=== PATIENT | female | born 1950 | race Caucasian/White ===

== ENCOUNTER 2016-12-05 11:54 | Inpatient (IN) | payer MEDICARE, OTHER ==
[2016-12-05] VITALS (8 sets, daily range): BP systolic 110–155; BP diastolic 57–68; PULSE 81–106; RESP 18–19; TEMP 97.6–98.2; O2SAT 95–100
[~2016-12-05] VITALS: Ht 162.6 cm; Wt 66.3 kg
[~2016-12-05 11:54] MED LIST: LEVO.15
[2016-12-05] MEDS ORDERED: SODIUM CHLOR 0.9% 1000 ML INJ 1,000 ML IV SCH (12:06)
[2016-12-05] MEDS ORDERED: SODIUM CHLORIDE 0.9% FLUSH 5 ML FLUSH IVF PRN (12:15)
[2016-12-05] MEDS ORDERED: ONDANSETRON HCL 4 MG/2 ML VIAL IV PUSH ONE (12:15)
[2016-12-05] MEDS ORDERED: MORPHINE SULFATE 4 MG/ML INJ IV PUSH ONE (12:15)
--- NOTE | 2016-12-05 12:30 | RADRPT ---
EXAM DATE/TIME: 12/05/2016 12:17 [facility] COMPARISON: No previous studies available for comparison. INDICATIONS : Syncope, Seizure, Short of Breath, Chest Discomfort. MEDICAL HISTORY : Asthma. SURGICAL HISTORY : None. ENCOUNTER: Initial ACUITY: 1 day PAIN SCORE: 3/10 LOCATION: Bilateral chest FINDINGS: A single view of the chest demonstrates the lungs to be symmetrically aerated without evidence of mas s, infiltrate or effusion. The cardiomediastinal contours are unremarkable. Osseous structures are intact. CONCLUSION: No acute disease. aPul Rizo MD on December 05, 2016 at 12:28 Board Certified Radiologist. This report was verified electronically.
[2016-12-05] MEDS ORDERED: MULT-120 PO (12:31)
[2016-12-05] MEDS ORDERED: THYROID MED PO (12:31)
[2016-12-05] MEDS ORDERED: VITA100021 SL (12:32)
[2016-12-05 12:47] LABS: AUTOMATED NEUTROPHIL # 11.8 TH/MM3 (1.8-7.7); BASOPHIL # 0.1 TH/MM3 (0-0.2); BASOPHIL % 0.4 % (0.0-2.0); EOSINOPHIL % 0.2 % (0.0-4.0); HEMATOCRIT 36.5 % (35.0-46.0); HEMO FLAGS DIFF FINAL; LYMPH % 20.5 % (9.0-44.0); LYMPHOCYTE # 3.4 TH/MM3 (1.0-4.8); MEAN CELL VOLUME 88.7 FL (80.0-100.0); MEAN CORPUSCULAR HEMOGLOBIN 28.7 PG (27.0-34.0); MEAN CORPUSCULAR HGB CONC 32.4 % (32.0-36.0); MONO % 8.3 % (0.0-8.0); NEUT % 70.6 % (16.0-70.0); PLATELET COUNT 507 TH/MM3 (150-450); RED BLOOD COUNT 4.12 MIL/MM3 (4.00-5.30); WHITE BLOOD COUNT 16.7 TH/MM3 (4.0-11.0)
[2016-12-05 12:57] LABS: AMPHETAMINE, URINE NEG (NEG); BARBITURATES, URINE NEG (NEG); COCAINE, URINE NEG (NEG)
[2016-12-05 13:01] LABS: BACTERIA, URINE MANY /hpf; BLOOD, URINE NEG (NEG); GLUCOSE,URINE NEG (NEG); GRANULAR CAST, URINE 2 /lpf; HYALINE CAST, URINE 23 /lpf (RARE); KETONE, URINE 10 mg/dL (NEG); MUCUS URINE FEW /lpf (OCC); PH, URINE 5.5 (5.0-8.5); URINE COLOR YELLOW (YELLW/STRAW)
[2016-12-05 13:02] LABS: COMMENT (UR) CATH-CULTURE IND; CULTURE IF INDICATED CATH CULTURE IND; NITRITE,URINE POS (NEG)
[2016-12-05 13:04] LABS: ALT (GPT) 28 U/L (10-53); ANION GAP 14 MEQ/L (5-15); AST (GOT) 17 U/L (15-37); BICARBONATE 21.2 MEQ/L (21.0-32.0); BLOOD UREA NITROGEN 7 MG/DL (7-18); CHLORIDE 108 MEQ/L (98-107); GLOMERULAR FILTRATION RATE 88 ML/MIN (>89); POTASSIUM 3.1 MEQ/L (3.5-5.1); SODIUM (NA) 143 MEQ/L (136-145)
[2016-12-05 13:13] LABS: ALKALINE PHOSPHATASE 64 U/L (45-117); TOTAL BILIRUBIN ADULT 0.3 MG/DL (0.2-1.0)
[2016-12-05 13:15] LABS: CREATINE KINASE 51 U/L (26-192)
[2016-12-05] MEDS ORDERED: METHIMAZOLE 10 MG TAB PO ONE (13:30)
[2016-12-05] MEDS ORDERED: HYDROCORTISONE SOD SUCCINATE 100 MG VIAL IV PUSH ONE (13:30)
[2016-12-05] MEDS ORDERED: PROPRANOLOL HCL 80 MG TAB PO ONE (13:30)
[2016-12-05] MEDS ORDERED: IODINE (STRONG-LUGOLS) SOLN 20 DROP/1 ML BTL PO ONE (13:30)
[2016-12-05] MEDS ORDERED: POTASSIUM CHLORIDE 25 MEQ EFFERVESCENT TAB PO ONE (13:30)
[2016-12-05 14:04] LABS: INTERNATIONAL NORMALIZED RATIO 1.1 RATIO; PROTHROMBIN TIME - PATIENT 12.6 SEC (9.8-11.6)
[2016-12-05 14:06] LABS: FREE T3 6.83 PG/ML (2.18-3.98); FREE T4 2.65 NG/DL (0.76-1.46)
[2016-12-05] MEDS ORDERED: LORazepam 2 MG/ML VIAL IV PRN (14:15)
[2016-12-05] MEDS ORDERED: CHLORHEXIDINE GLUCONATE 2 % 1 PACK (2 CLOTHS) TOP PRN (14:15)
[2016-12-05] MEDS ORDERED: RESP: ALBUTEROL 2.5 MG/IPRATROPIUM 0.5 MG NEB (PRN) INH (14:15)
[2016-12-05] MEDS ORDERED: MISCELLANEOUS NURSING INFORMATION XX SCH (14:15)
[2016-12-05] MEDS ORDERED: ACETAMINOPHEN 325 MG TAB PO PRN (14:15)
[2016-12-05] MEDS ORDERED: SODIUM CHLORIDE 0.9% FLUSH 5 ML FLUSH IV FLUSH PRN (14:15)
[2016-12-05] MEDS ORDERED: METOCLOPRAMIDE HCL 10 MG/2 ML VIAL IV PRN (14:15)
--- NOTE | 2016-12-05 14:15 | HHI.HP ---
HPI Service Critical Care Medicine Primary Care Physician No Primary Care Physician Admission Diagnosis thyroid storm, altered mental status Diagnosis: Travel History International Travel<30 Days: No Contact w/Intl Traveler <30 Da: No Traveled to Known Affected Are: No History of Present Illness 66-year-old male was brought to the emergency room by EMS from an urgent care center after having a possible seizure episode. Patient went to the urgent care for right earache a couple. While she was being exam and she started posturing that lasted for about 30 seconds and then flailing her extremities. In the process she fell from the exam table. By the time 911 arrived patient had a GCS of 11 as per them and patient was combative with the flailing extremities. Her heart rate was in the 180s and they gave her a dental collared followed by Braydon and slowly the heart rate came down to 120s. During this time patient' s mental status improved to GCS of 14. She was less combative but slightly confused. She was urinary incontinent but no lip or tongue bite. She was complaining off mid back pain upon arrival and being moved from the stretcher. Patient continue to be a GCS of 14 and tachycardic upon arrival. She denied of any history of seizures. Patient does not have a primary care doctor and has not seen anybody in past 2 years. She is not on any medications on a regular basis she said. She denied any substance abuse. She is not an alcoholic. Besides the mid back pain she is not complaining of any other pain. Review of Systems Constitutional: DENIES: Diaphoretic episodes, Fatigue, Fever, Weight gain, Weight loss, Chills, Dizziness, Change in appetite, Night Sweats Endocrine: DENIES: Abnorml menstrual pattern, Heat/cold intolerance, Polydipsia , Polyuria, Polyphagia Eyes: DENIES: Blurred vision, Diplopia, Eye inflammation, Eye pain, Vision loss , Photosensitivity, Double Vision Ears, nose, mouth, throat: COMPLAINS OF: Ear Pain, DENIES: Tinnitus, Hearing loss, Vertigo, Nasal discharge, Oral lesions, Throat pain, Hoarseness, Running Nose, Epistaxis, Sinus Pain, Toothache, Odynophagia Respiratory: DENIES: Apneas, Cough, Snoring, Wheezing, Hemoptysis, Sputum production, Shortness of breath Cardiovascular: DENIES: Chest pain, Palpitations, Syncope, Dyspnea on Exertion , PND, Lower Extremity Edema, Orthopnea, Claudication Gastrointestinal: DENIES: Abdominal pain, Black stools, Bloody stools, Constipation, Diarrhea, Nausea, Vomiting, Difficulty Swallowing, Anorexia Genitourinary: DENIES: Abnormal vaginal bleeding, Dysmenorrhea, Dyspareunia, Sexual dysfunction, Urinary frequency, Urinary incontinence, Urgency, Hematuria , Dysuria, Nocturia, Vaginal discharge Musculoskeletal: DENIES: Joint pain, Muscle aches, Stiffness, Joint Swelling, Back pain, Neck pain Integumentary: DENIES: Abnormal pigmentation, Pruritus, Rash, Nail changes, Breast masses, Breast skin changes, Nipple discharge Hematologic/lymphatic: DENIES: Bruising, Lymphadenopathy Immunologic/allergic: DENIES: Eczema, Urticaria Neurologic: DENIES: Abnormal gait, Headache, Localized weakness, Paresthesias, Seizures, Speech Problems, Tremor, Poor Balance Psychiatric: DENIES: Anxiety, Confusion, Mood changes, Depression, Hallucinations, Agitation, Suicidal Ideation, Homicidal Ideation, Delusions Past Family Social History Allergies: Coded Allergies: Albuterol (Verified Allergy, Severe, 12/05/16) Past Medical History Tj thyroiditis 30 years ago Past Surgical History Non- Reported Medications Reported Meds & Active Scripts Active Reported Vitamin B-12 (Cyanocobalamin) 1,000 Mcg Subl 1,000 Mcg SL DAILY [Thyroid Med] 1 Tab PO QD Multivitamin Women (Multiple Vitamins W/ Minerals) 1 Tab Tab 1 Tab PO DAILY Active Ordered Medications Current Medications Medications (Trade) Dose Ordered Sig/Peterson Route PRN Reason Start Time Stop Time Status Last Admin Dose Admin IV Flush (NS Flush) 2 ml UNSCH PRN IVF FLUSH AFTER USING IV ACCESS 12/05/16 12:15 IV Flush (NS Flush) 2 ml UNSCH PRN IV FLUSH FLUSH AFTER USING IV ACCESS 12/05/16 14:15 IV Flush (NS Flush) 2 ml BID IV FLUSH 12/05/16 21:00 Acetaminophen (Tylenol) 650 mg Q6H PRN PO PAIN 1-10 AND/OR FEVER >101F 12/05/16 14:15 Morphine Sulfate (Morphine Inj) 2 mg Q2H PRN IV PAIN SCALE 6 TO 10 12/05/16 14:15 Famotidine (Pepcid) 20 mg Q12HR PO 12/05/16 21:00 Lorazepam (Ativan Inj) 1 mg Q1H PRN IV Agitation/Sedation 12/05/16 14:15 Ondansetron HCl (Zofran Inj) 4 mg Q6H PRN IV NAUSEA OR VOMITING 12/05/16 14:15 Metoclopramide HCl (Reglan Inj) 10 mg Q6H PRN IV NAUSEA OR VOMITING 12/05/16 14:15 Docusate Sodium (Colace) 100 mg BID PO 12/05/16 21:00 Zolpidem Tartrate (Ambien) 5 mg HS PRN PO INSOMNIA 12/05/16 14:15 Miscellaneous Information 1 [id number] XX 12/05/16 14:15 Chlorhexidine Gluconate (Chlorhexidine 2% Cloth) 3 pack Taper DAILY@04 TOP 12/06/16 04:00 12/02/17 03:59 Chlorhexidine Gluconate (Chlorhexidine 2% Cloth) 3 pack UNSCH PRN TOP HYGIENIC CARE 12/05/16 14:15 Propranolol HCl (Inderal) 40 mg Q8HR PO 12/05/16 22:00 Methimazole (Tapazole) 5 mg DAILY PO 12/06/16 09:00 Cholestyramine Resin (Questran 4 Gm Pkt) 4 gm Q8HR PO 12/05/16 22:00 Hydrocortisone Sodium Succinate (SoluCORTEF INJ) 100 mg Q12HR IV PUSH 12/05/16 21:00 Social History Used to drink stopped 30 years ago Used to smoke stopped 25 years ago No illicit drug abuse Physical Exam Vital Signs Vital Signs Date Time Temp Pulse Resp B/P Pulse Ox O2 Delivery O2 Flow Rate FiO2 12/05/16 12:27 97.6 98 18 132/68 96 Nasal Cannula 3 12/05/16 12:26 96 Nasal Cannula 3 12/05/16 12:01 111 16 97 Nasal Cannula 2 Physical Exam GENERAL: Well-nourished, well-developed patient. SKIN: Warm and dry. HEAD: Normocephalic. EYES: No scleral icterus. No injection or drainage. NECK: Supple, trachea midline. No JVD or lymphadenopathy. CARDIOVASCULAR: Regular rate and rhythm without murmurs, gallops, or rubs. RESPIRATORY: Breath sounds equal bilaterally. No accessory muscle use. GASTROINTESTINAL: Abdomen soft, non-tender, nondistended. MUSCULOSKELETAL: No cyanosis, or edema. BACK: Nontender without obvious deformity. No CVA tenderness. Laboratory Laboratory Tests Test 12/05/16 12/05/16 12:10 13:20 White Blood Count 16.7 Red Blood Count 4.12 Hemoglobin 11.8 Hematocrit 36.5 Mean Corpuscular Volume 88.7 Mean Corpuscular Hemoglobin 28.7 Mean Corpuscular Hemoglobin 32.4 Concent Red Cell Distribution Width 14.0 Platelet Count 507 Mean Platelet Volume 7.8 Neutrophils (%) (Auto) 70.6 Lymphocytes (%) (Auto) 20.5 Monocytes (%) (Auto) 8.3 Eosinophils (%) (Auto) 0.2 Basophils (%) (Auto) 0.4 Neutrophils # (Auto) 11.8 Lymphocytes # (Auto) 3.4 Monocytes # (Auto) 1.4 Eosinophils # (Auto) 0.0 Basophils # (Auto) 0.1 CBC Comment DIFF FINAL Differential Comment Urine Color YELLOW Urine Turbidity HAZY Urine pH 5.5 Urine Specific [place] 1.017 Urine Protein 30 Urine Glucose (UA) NEG Urine Ketones 10 Urine Occult Blood NEG Urine Nitrite POS Urine Bilirubin NEG Urine Urobilinogen LESS THAN 2.0 Urine Leukocyte Esterase LARGE Urine RBC 6 Urine WBC 45 Urine WBC Clumps FEW Urine Bacteria MANY Urine Hyaline Casts 23 Urine Granular Casts 2 Urine Mucus FEW Microscopic Urinalysis Comment CATH-CULTURE IND Sodium Level 143 Potassium Level 3.1 Chloride Level 108 Carbon Dioxide Level 21.2 Anion Gap 14 Blood Urea Nitrogen 7 Creatinine 0.67 Estimat Glomerular Filtration 88 Rate Random Glucose 163 Calcium Level 8.4 Total Bilirubin 0.3 Aspartate Amino Transf 17 (AST/SGOT) Alanine Aminotransferase 28 (ALT/SGPT) Alkaline Phosphatase 64 Total Creatine Kinase 51 Troponin I LESS THAN 0.02 Total Protein 6.1 Albumin 2.7 Free Thyroxine 2.65 Free Triiodothyronine (T3) 6.83 pg/dL Thyroid Stimulating Hormone 0.017 3rd Gen Urine Opiates Screen NEG Urine Barbiturates Screen NEG Urine Amphetamines Screen NEG Urine Benzodiazepines Screen NEG Urine Cocaine Screen NEG Urine Cannabinoids Screen NEG Ethyl Alcohol Level LESS THAN 3 Prothrombin Time 12.6 Prothromb Time International 1.1 Ratio Date/Time Procedure Status Source Growth 12/05/16 12:10 Urine Culture Received Urine Catheterized Urine Pending Result Diagram: 12/05/16 1210 12/05/16 1210 Imaging Last [address] 12/05/16 1206 Signed Impressions: Service Date/Time: Monday, December 05, 2016 14:07 - CONCLUSION: Normal examination for a patient of this age. Paul Rizo MD Chest X-Ray 12/05/16 1206 Signed Impressions: Service Date/Time: Monday, December 05, 2016 12:17 - CONCLUSION: No acute disease. Paul Rizo MD Thoracic Spine CT 12/05/16 0000 Signed Impressions: Service Date/Time: Monday, December 05, 2016 14:17 - CONCLUSION: 1. Small superior endplate compression fracture of T7 without subluxation. 2. No canal stenosis. Bones are osteopenic. Colin Bonilla MD CT Angiography 12/05/16 0000 Signed Impressions: Service Date/Time: Monday, December 05, 2016 14:17 - CONCLUSION: 1. No evidence of PE. 2. There is atelectasis in the renal segment of the left lung and right lung base. 3. Hepatic cysts. Paul Rizo MD Assessment and Plan Assessment and Plan Thyroid storm - Propranolol - Hydrocortisone - Methimazole - Xanax when necessary Otitis media - Amoxicillin DVT GI prophylaxis -Early aggressive mobilization and Pepcid Critical Care: The total critical care time was 35 minutes. Time to perform other separately billable procedures was not included in the critical care time. Hero Puente MD Dec 05, 2016 14:15
--- NOTE | 2016-12-05 14:23 | PD ---
HPI Chief Complaint: Seizure Time Seen by Provider: 12:04 Travel History International Travel<30 days: No Contact w/Intl Traveler<30days: No Traveled to known affect area: No History of Present Illness HPI 66-year-old male was brought to the emergency room by EMS from an urgent care center after having a possible seizure episode. Patient went to the urgent care for right earache. While she was being examined she started posturing that lasted for less than 30 seconds and then she started flailing her extremities. In the process she fell from the exam table. By the time 911 arrived patient had a GCS of 11 as per them and patient was combative with the flailing extremities. Her heart rate was in the 180s and they gave her Adenocard followed by Cardizem and slowly the heart rate came down to 120s. During this time patient's mental status improved as well to GCS of 14. She was less combative but slightly confused. She had urinary incontinent but no lip or tongue bite. She was complaining off mid back pain upon arrival and being moved from the stretcher. Patient continue to be a GCS of 14 and tachycardic upon arrival. She denied of any history of seizures. Patient does not have a primary care doctor and has not seen anybody in past 2 years. She is not on any medications on a regular basis she said. She denied any substance abuse. She is not an alcoholic. Besides the mid back pain she is not complaining of any other pain. Patient's behavior was bizarre. [facility] Past Medical History Narrative Medical List of her past medical history as reviewed from the nursing note. Asthma: Yes Autoimmune Disease: No Blood Disorders: No Heart Rhythm Problems: No Cancer: No Cardiac Catheterization: No Cardiovascular Problems: Yes High Cholesterol: No Congestive Heart Failure: No Diabetes: No Endocrine: Yes Gastrointestinal Disorders: No Genitourinary: No Hypertension: No Musculoskeletal: No Neurologic: No Psychiatric: No Respiratory: No Myocardial Infarction: No Thyroid Disease: Yes Tetanus Vaccination: > 5 Years Influenza Vaccination: No Menopausal: Yes Past Surgical History Cholecystectomy: Yes (ERCP 2004) Coronary Artery Bypass Graft: No Gynecologic Surgery: Yes (D AND C) Social History Alcohol Use: No Tobacco Use: No Substance Use: No Allergies-Medications (Allergen,Severity, Reaction): Coded Allergies: Albuterol (Verified Allergy, Severe, 2/12/17) Comments List of her allergies reviewed from the nursing note. Reported Meds & Prescriptions Reported Meds & Active Scripts Active Reported Vitamin B-12 (Cyanocobalamin) 1,000 Mcg Subl 1,000 Mcg SL DAILY [Thyroid Med] 1 Tab PO QD Multivitamin Women (Multiple Vitamins W/ Minerals) 1 Tab Tab 1 Tab PO DAILY Narrative Medication List of her home medications reviewed from the nursing note. Review of Systems Except as stated in HPI: all other systems reviewed are Neg Physical Exam Narrative GENERAL: Awake, slightly confused, moderate distress SKIN: Warm and dry. HEAD: Atraumatic. Normocephalic. EYES: Pupils equal and round. No scleral icterus. No injection or drainage. ENT: No nasal bleeding or discharge. Mucous membranes pink and moist. Right TM has a small erythematous dot on the umbo. Light reflex preserved NECK: Trachea midline. No JVD. CARDIOVASCULAR: Regular rate and rhythm. No murmur appreciated. RESPIRATORY: No accessory muscle use. Clear to auscultation. Breath sounds equal bilaterally. GASTROINTESTINAL: Abdomen soft, non-tender, nondistended. Hepatic and splenic margins not palpable. MUSCULOSKELETAL: No obvious deformities. No clubbing. No cyanosis. No edema. NEUROLOGICAL: Awake but confused. GCS of 14. No obvious cranial nerve deficits. Motor grossly within normal limits. Normal speech. PSYCHIATRIC: Appropriate mood and affect; insight and judgment normal. Data Data Last Documented VS Vital Signs Date Time Temp Pulse Resp B/P Pulse Ox O2 Delivery O2 Flow Rate FiO2 12/05/16 12:27 97.6 98 18 132/68 96 Nasal Cannula 3 Orders Electrocardiogram (12/05/16 12:06) Complete Blood Count With Diff (12/05/16 12:06) Comprehensive Metabolic Panel (12/05/16 12:06) Creatine Kinase (Cpk) (12/05/16 12:06) Prothrombin Time / Inr (Pt) (12/05/16 12:06) Troponin I (12/05/16 12:06) Thyroid Stimulating Hormone (12/05/16 12:06) Urinalysis - C+S If Indicated (12/05/16 12:06) Chest, Single Ap (12/05/16 12:06) Ct Brain W/O Iv Contrast(Rout) (12/05/16 12:06) Blood Glucose (12/05/16 12:06) Ecg Monitoring (12/05/16 12:06) Iv Access Insert/Monitor (12/05/16 12:06) Oximetry (12/05/16 12:06) Sodium Chloride 0.9% Flush (Ns Flush) (12/05/16 12:15) Sodium Chlor 0.9% 1000 Ml Inj (Ns 1000 M (12/05/16 12:06) Drug Screen, Random Urine (12/05/16 12:06) Alcohol (Ethanol) (12/05/16 12:06) Ct Pulmonary Angiogram (12/05/16 ) Ct Thor Spine W/O Contrast (12/05/16 ) Morphine Inj (Morphine Inj) (12/05/16 12:15) Ondansetron Inj (Zofran Inj) (12/05/16 12:15) Urine Culture (12/05/16 12:10) Potassium Chloride Eff (K-Lyte Cl Eff) (12/05/16 13:30) Hydrocortisone Inj (Solucortef Inj) (12/05/16 13:30) Propranolol (Inderal) (12/05/16 13:30) Methimazole (Tapazole) (12/05/16 13:30) Iodine (Strong) 1 Ml (Lugols (Strong Iod (12/05/16 13:30) Free T3 (12/05/16 13:22) Free Thyroxine (T4) (12/05/16 13:22) Admit Order (Ed Use Only) (12/05/16 14:09) Direct Bilirubin (12/05/16 12:10) Labs Laboratory Tests Test 12/05/16 12/05/16 12:10 13:20 Sodium Level 143 MEQ/L Potassium Level 3.1 MEQ/L Chloride Level 108 MEQ/L Carbon Dioxide Level 21.2 MEQ/L Anion Gap 14 MEQ/L Blood Urea Nitrogen 7 MG/DL Creatinine 0.67 MG/DL Estimat Glomerular Filtration 88 ML/MIN Rate Random Glucose 163 MG/DL Calcium Level 8.4 MG/DL Total Bilirubin 0.3 MG/DL Direct Bilirubin 0.1 MG/DL Aspartate Amino Transf 17 U/L (AST/SGOT) Alanine Aminotransferase 28 U/L (ALT/SGPT) Alkaline Phosphatase 64 U/L Total Creatine Kinase 51 U/L Troponin I LESS THAN 0.02 NG/ML Total Protein 6.1 GM/DL Albumin 2.7 GM/DL Free Thyroxine 2.65 NG/DL Free Triiodothyronine (T3) 6.83 PG/ML pg/dL Thyroid Stimulating Hormone 0.017 uIU/ML 3rd Gen Urine Opiates Screen NEG Urine Barbiturates Screen NEG Urine Amphetamines Screen NEG Urine Benzodiazepines Screen NEG Urine Cocaine Screen NEG Urine Cannabinoids Screen NEG Ethyl Alcohol Level LESS THAN 3 MG/DL White Blood Count 16.7 TH/MM3 Red Blood Count 4.12 MIL/MM3 Hemoglobin 11.8 GM/DL Hematocrit 36.5 % Mean Corpuscular Volume 88.7 FL Mean Corpuscular Hemoglobin 28.7 PG Mean Corpuscular Hemoglobin 32.4 % Concent Red Cell Distribution Width 14.0 % Platelet Count 507 TH/MM3 Mean Platelet Volume 7.8 FL Neutrophils (%) (Auto) 70.6 % Lymphocytes (%) (Auto) 20.5 % Monocytes (%) (Auto) 8.3 % Eosinophils (%) (Auto) 0.2 % Basophils (%) (Auto) 0.4 % Neutrophils # (Auto) 11.8 TH/MM3 Lymphocytes # (Auto) 3.4 TH/MM3 Monocytes # (Auto) 1.4 TH/MM3 Eosinophils # (Auto) 0.0 TH/MM3 Basophils # (Auto) 0.1 TH/MM3 CBC Comment DIFF FINAL Differential Comment Urine Color YELLOW Urine Turbidity HAZY Urine pH 5.5 Urine Specific [place] 1.017 Urine Protein 30 mg/dL Urine Glucose (UA) NEG mg/dL Urine Ketones 10 mg/dL Urine Occult Blood NEG Urine Nitrite POS Urine Bilirubin NEG Urine Urobilinogen LESS THAN 2.0 MG/DL Urine Leukocyte Esterase LARGE Urine RBC 6 /hpf Urine WBC 45 /hpf Urine WBC Clumps FEW Urine Bacteria MANY /hpf Urine Hyaline Casts 23 /lpf Urine Granular Casts 2 /lpf Urine Mucus FEW /lpf Microscopic Urinalysis Comment CATH-CULTURE IND Prothrombin Time 12.6 SEC Prothromb Time International 1.1 RATIO Ratio MDM Medical Decision Making Medical Screen Exam Complete: Yes Emergency Medical Condition: Yes Medical Record Reviewed: Yes Interpretation(s) Twelve-lead EKG was reviewed by me. Normal sinus rhythm, normal axis, nonspecific ST-T wave changes, PVC, tachycardia. Heart rate of 111 bpm. Differential Diagnosis Substance abuse, intracranial bleed, metabolic encephalopathy, electrolyte abnormalities, intracerebral tumor Narrative Course 2:18 PM blood test results of back and patient has leukocytosis which could be explained because of this stressful event. Chemistry shows almost nonexistent TSH level which could be from possible thyroid storm. This would explain the tachycardia, altered mental status/seizure-like episode. Patient is getting IV fluid bolus. I have ordered medications related to thyroid storm mainly propranolol, Methimazole, Lugol's iodine and IV hydrocortisone. Patient will be admitted to the ICU. I spoke with the certified welder who has accepted the case. I have ordered CT of her head, thoracic spine and pulmonary angiogram. Awaiting for the test to be done and resulted. Free T3 and T4 results are back and they are 2-3 times the normal value. Urine drug screen is negative. Her urine analysis showed UTI which I have ordered Rocephin for. Critical Care Narrative Aggregate critical care time was 60 minutes. Time to perform other separately billable procedures was not included in the critical care time. My time did not include minutes spent treating any other patients simultaneously or on activities that did not directly contribute to the patient's treatment. The services I provided to this patient were to treat and/or prevent clinically significant deterioration that could result in: Altered mental status, thyroid storm, thyroid storm management I provided critical care services requiring my management, as noted below: Chart data review, documentation time, medication orders and management, vital sign assessments/reviewing monitor data, ordering and reviewing lab tests, ordering and interpreting/reviewing x-rays and diagnostic studies, care of the patient and discussion of the patient with the admitting physicians. Procedures EKG Prior to Arrival: Yes Physician Communication Physician Communication Dr. Puente Diagnosis Primary Impression: Thyroid crisis or storm Qualified Code: E05.91 - Thyrotoxicosis with thyrotoxic crisis, unspecified thyrotoxicosis type Additional Impressions: Altered mental status Qualified Code: R41.0 - Delirium UTI (urinary tract infection) Qualified Code: N39.0 - Urinary tract infection without hematuria, site unspecified Pain in thoracic spine Admitting Information Admitting Physician Requests: it Aristeo Kohler MD Dec 05, 2016 14:23
[2016-12-05] MEDS ORDERED: KETOROLAC TROMETHAMINE 30 MG/ML (IVP) VIAL IV PUSH ONE (14:30)
[2016-12-05] MEDS ORDERED: cefTRIAXone INJ 1,000 MG in SODIUM CHLORIDE 0.9% INJ 100 ML IV ONE (14:30)
[2016-12-05] MEDS ORDERED: IOHEXOL 350 MG/ML 10 ML VIAL (for RAD DIAG) IV ONE (14:32)
--- NOTE | 2016-12-05 14:36 | RADRPT ---
EXAM DATE/TIME: 12/05/2016 14:07 [facility] COMPARISON: No previous studies available for comparison. INDICATIONS : Seizure. Fall. RADIATION DOSE: 50.06 CTDIvol (mGy) MEDICAL HISTORY : Cardiovascular disease. SURGICAL HISTORY : Cholecystectomy. ENCOUNTER: Initial ACUITY: 1 day PAIN SCALE: 0/10 LOCATION: cranial TECHNIQUE: Multiple contiguous axial images were obtained of the head. Using automated exposure control and adj ustment of the mA and/or kV according to patient size, radiation dose was kept as low as reasonably a chievable to obtain optimal diagnostic quality images. FINDINGS: CEREBRUM: The ventricles are normal for age. No evidence of midline shift, mass lesion, hemorrhage or acute in farction. No extra-axial fluid collections are seen. POSTERIOR FOSSA: The cerebellum and brainstem are intact. The 4th ventricle is midline. The cerebellopontine angle i s unremarkable. EXTRACRANIAL: The visualized portion of the orbits is intact. SKULL: The calvaria is intact. No evidence of skull fracture. CONCLUSION: Normal examination for a patient of this age. Paul Rizo MD on December 05, 2016 at 14:34 Board Certified Radiologist. This report was verified electronically.
--- NOTE | 2016-12-05 14:39 | RADRPT ---
EXAM DATE/TIME: 12/05/2016 14:17 [facility] COMPARISON: No previous studies available for comparison. INDICATIONS : Chest pain. Evaluate for embolism. IV CONTRAST: 50 cc Omnipaque 350 (iohexol) IV RADIATION DOSE: 22.93 CTDIvol (mGy) MEDICAL HISTORY : Cardiovascular disease. SURGICAL HISTORY : Cholecystectomy. ENCOUNTER: Initial ACUITY: 1 day PAIN SCALE: 3/10 LOCATION: chest TECHNIQUE: Volumetric scanning of the chest was performed using a pulmonary embolism protocol MIP images were re constructed. Using automated exposure control and adjustment of the mA and/or kV according to patien t size, radiation dose was kept as low as reasonably achievable to obtain optimal diagnostic quality images. FINDINGS: PULMONARY ARTERIES: No filling defects are seen in the pulmonary arteries through the segmental level. LUNGS: There is mild atelectasis in the lingula segment of the left lung and at the right lung base. Otherwi se, the lungs are clear and well aerated. PLEURAE: There is no pleural thickening or pleural effusion. MEDIASTINUM: There is good visualization of the great vessels of the middle mediastinum. No evidence of mediastin al or hilar adenopathy/mass. MUSCULOSKELETAL: Within normal limits for patient age. MISCELLANEOUS: There are multiple hepatic cysts demonstrated. Status post cholecystectomy. CONCLUSION: 1. No evidence of PE. 2. There is atelectasis in the renal segment of the left lung and right lung base. 3. Hepatic cysts. Paul Rizo MD on December 05, 2016 at 14:35 Board Certified Radiologist. This report was verified electronically.
--- NOTE | 2016-12-05 15:13 | RADRPT ---
EXAM DATE/TIME: 12/05/2016 14:17 [facility] COMPARISON: No previous studies available for comparison. INDICATIONS : Seizure. Fall. Pain. RADIATION DOSE: ; Reconstructed from previous dataset MEDICAL HISTORY : Cardiovascular disease. SURGICAL HISTORY : Cholecystectomy. ENCOUNTER: Initial ACUITY: 1 day PAIN SCALE: 2/10 LOCATION: thoracic TECHNIQUE: Volumetric scanning of the thoracic spine was performed. Multiplanar reconstructions in the sagittal , coronal and oblique axial planes were performed. Using automated exposure control and adjustment o f the mA and/or kV according to patient size, radiation dose was kept as low as reasonably achievable to obtain optimal diagnostic quality images. FINDINGS: There is a mild compression fracture of the superior endplate of T7 with a small anterosuperior corne r fracture. No subluxation. No other fractures identified within the thoracic spine. There is no sign ificant canal stenosis. No discrete disc protrusions. CONCLUSION: 1. Small superior endplate compression fracture of T7 without subluxation. 2. No canal stenosis. Bones are osteopenic. Colin Bonilla MD on December 05, 2016 at 15:07 Board Certified Radiologist. This report was verified electronically.
[2016-12-05] MEDS: MORPHINE SULFATE 4 MG/ML INJ IV PRN ×2 (17:20→21:34)
[2016-12-05] MEDS: AMOXICILLIN (TRIHYDRATE) 250 MG CAP PO SCH (18:59)
[2016-12-05] MEDS: FAMOTIDINE 20 MG TAB PO SCH (21:37)
[2016-12-05] MEDS: DOCUSATE SODIUM 100 MG CAP PO SCH (21:37)
[2016-12-05] MEDS: HYDROCORTISONE SOD SUCCINATE 100 MG VIAL IV PUSH SCH (21:37)
[2016-12-05] MEDS: SODIUM CHLORIDE 0.9% FLUSH 5 ML FLUSH IV FLUSH SCH (21:38)
[2016-12-05] MEDS: ZOLPIDEM TARTRATE 5 MG TAB PO PRN (21:57)
[2016-12-05] MEDS: ONDANSETRON HCL 4 MG/2 ML VIAL IV PRN (21:57)
[2016-12-05] MEDS: PROPRANOLOL HCL 40 MG TAB PO SCH (22:00)
[2016-12-05] MEDS: CHOLESTYRAMINE 4 GM PACKET PO SCH (22:00)
[2016-12-06] VITALS (15 sets, daily range): BP systolic 94–136; BP diastolic 53–84; PULSE 76–94; RESP 14–25; TEMP 97.6–98.6; O2SAT 92–100
[2016-12-06] MEDS: CHLORHEXIDINE GLUCONATE 2 % 1 PACK (2 CLOTHS) TOP SCH (04:00)
[2016-12-06] MEDS: CHOLESTYRAMINE 4 GM PACKET PO SCH ×3 (05:23→21:28)
[2016-12-06] MEDS: PROPRANOLOL HCL 40 MG TAB PO SCH ×3 (05:24→21:26)
[2016-12-06 05:42] LABS: AUTOMATED NEUTROPHIL # 7.2 TH/MM3 (1.8-7.7); BASOPHIL % 0.3 % (0.0-2.0); HEMATOCRIT 33.4 % (35.0-46.0); HEMO FLAGS DIFF FINAL; LYMPH % 16.3 % (9.0-44.0); LYMPHOCYTE # 1.6 TH/MM3 (1.0-4.8); MEAN CELL VOLUME 86.6 FL (80.0-100.0); MEAN CORPUSCULAR HEMOGLOBIN 29.5 PG (27.0-34.0); MEAN CORPUSCULAR HGB CONC 34.1 % (32.0-36.0); MONO % 8.6 % (0.0-8.0); NEUT % 74.8 % (16.0-70.0); PLATELET COUNT 427 TH/MM3 (150-450); RED BLOOD COUNT 3.86 MIL/MM3 (4.00-5.30); WHITE BLOOD COUNT 9.6 TH/MM3 (4.0-11.0)
[2016-12-06] MEDS: HYDROCORTISONE SOD SUCCINATE 100 MG VIAL IV PUSH SCH ×2 (08:16→21:27)
[2016-12-06] MEDS: METHIMAZOLE 5 MG TAB PO SCH (08:16)
[2016-12-06] MEDS: MORPHINE SULFATE 4 MG/ML INJ IV PRN ×2 (08:16→21:27)
[2016-12-06] MEDS: FAMOTIDINE 20 MG TAB PO SCH ×2 (08:17→21:26)
[2016-12-06] MEDS: SODIUM CHLORIDE 0.9% FLUSH 5 ML FLUSH IV FLUSH SCH ×2 (08:17→21:27)
[2016-12-06] MEDS: DOCUSATE SODIUM 100 MG CAP PO SCH ×2 (08:17→21:26)
[2016-12-06] MEDS: AMOXICILLIN (TRIHYDRATE) 250 MG CAP PO SCH ×3 (08:17→18:07)
--- NOTE | 2016-12-06 10:27 | EKG ---
Date Performed: 12/05/2016 Time Performed: 12:01:31 PTAGE: 66 years EKG: SINUS TACHYCARDIA WITH OCCASIONAL VENTRICULAR PREMATURE COMPLEXES MODERATE ST DEPRESSION AB NORMAL ECG Compared to prior tracing no significant change PREVIOUS TRACING : 05/11/2007 21.32 DOCTOR: Tyrel Lyons Interpretating Date/Time 12/06/2016 10:25:35
--- NOTE | 2016-12-06 15:51 | HHI.PR ---
Subjective Remarks Follow-up for possible seizure activity, thyroid storm, T7 fracture. Patient is currently doing well. Denies any chest pain, shortness of breath, fever or chills. Objective Vitals Vital Signs Date Time Temp Pulse Resp B/P Pulse Ox O2 Delivery O2 Flow Rate FiO2 12/06/16 14:00 85 12/06/16 12:00 97.9 77 21 94/53 95 12/06/16 12:00 77 12/06/16 10:00 78 12/06/16 08:21 96 21 12/06/16 08:00 76 12/06/16 08:00 97.6 76 20 112/57 93 12/06/16 07:00 97 Room Air 2.00 12/06/16 06:00 85 12/06/16 05:53 98 Nasal Cannula 2.00 12/06/16 04:00 98.1 92 14 95/58 92 12/06/16 04:00 92 12/06/16 02:00 94 12/06/16 00:00 98.5 90 21 117/62 96 12/06/16 00:00 90 12/05/16 22:00 85 12/05/16 21:00 98.2 83 19 116/57 100 12/05/16 20:40 100 Nasal Cannula 2.00 12/05/16 20:40 81 12/05/16 20:00 85 18 110/66 99 Room Air 12/05/16 17:28 88 18 127/59 95 Room Air I/O 12/05/16 12/05/16 12/05/16 12/06/16 12/06/16 12/06/16 07:00 15:00 23:00 07:00 15:00 23:00 Intake Total 250 ml 120 ml 400 ml Balance 250 ml 120 ml 400 ml Intake Oral 240 ml 120 ml 400 ml IV Total 10 ml 0 ml 0 ml # Voids 1 1 0 # Bowel Movements 0 0 0 Result Diagram: 12/06/16 0518 12/05/16 1210 Imaging Last Impressions Head CT 12/05/16 1206 Signed Impressions: Service Date/Time: Monday, December 05, 2016 14:07 - CONCLUSION: Normal examination for a patient of this age. Paul Rizo MD Chest X-Ray 12/05/16 1206 Signed Impressions: Service Date/Time: Monday, December 05, 2016 12:17 - CONCLUSION: No acute disease. Paul Rizo MD Thoracic Spine CT 12/05/16 0000 Signed Impressions: Service Date/Time: Monday, December 05, 2016 14:17 - CONCLUSION: 1. Small superior endplate compression fracture of T7 without subluxation. 2. No canal stenosis. Bones are osteopenic. Colin Bonilla MD CT Angiography 12/05/16 0000 Signed Impressions: Service Date/Time: Monday, December 05, 2016 14:17 - CONCLUSION: 1. No evidence of PE. 2. There is atelectasis in the renal segment of the left lung and right lung base. 3. Hepatic cysts. Paul Rizo MD Objective Remarks GENERAL: Alert, oriented 3, NAD. SKIN: Warm and dry. HEAD: Normocephalic. EYES: No scleral icterus. No injection or drainage. NECK: Supple, trachea midline. No JVD or lymphadenopathy. CARDIOVASCULAR: Regular rate and rhythm without murmurs, gallops, or rubs. RESPIRATORY: Breath sounds equal bilaterally. No accessory muscle use. GASTROINTESTINAL: Abdomen soft, non-tender, nondistended. MUSCULOSKELETAL: No cyanosis, or edema. BACK: Nontender without obvious deformity. No CVA tenderness. Procedures None A/P Problem List: (1) Thyroid crisis or storm ICD Code: E05.91 Status: Acute (2) T7 vertebral fracture ICD Code: S22.069A Status: Acute (3) Otitis media ICD Code: H66.90 Status: Acute Assessment and Plan Ms. Uriarte is a pleasant 66-year-old female who was sent from an urgent care facility due to concern over possible seizure episode. She also fell from the table and urgent care. She was admitted with thyroid storm. Her TSH was 0.017, free T4 2 0.65, free T36.83 on admission. She was given beta emily, methimazole. - Thyroid storm - currently controlled. - Continue propranolol 40 mg every 8 hours, methimazole 5 mg daily. - Continue hydrocortisone 100 mg IV every 12 hours. We can probably discontinue steroids soon. - T7 vertebral compression fracture - CT imaging shows superior endplate fracture of T7 without any spinal stenosis. - Neurosurgery consult for input with this T7 fracture. - Otitis media - amoxicillin - Insomnia - continue zolpidem when necessary. - Transfer to [facility] floor. Full code. SCDs. Problem Qualifiers (1) Thyroid crisis or storm: Qualified Code: E05.91 - Thyrotoxicosis with thyrotoxic crisis, unspecified thyrotoxicosis type Jelani Lees DO Dec 06, 2016 3:51 pm
--- NOTE | 2016-12-06 19:12 | MB ---
cc: JESUS WOLFE M.D. DATE OF CONSULTATION 12/06/2016 REASON FOR CONSULTATION She is a 66-year-old woman seen in neurological consultation because of seizure. HISTORY OF THE PRESENT ILLNESS The patient was in the Urgent Care being evaluated for a ear and sinus bothering her. While there she was apparently started posturing and started swelling in her extremities and had a seizure. She fell of the exam table. She was combative. She remains somewhat confused. She had urinary incontinence. The note described that she did not bite her tongue, I am seeing some evidence of a left-sided tongue injury. She was found to have a slight fracture end plate T7 without any subluxation. MEDICATIONS She takes: 1. B12 tablets. 2. Thyroid replacement. 3. And vitamins only. No history of stroke, TIA, seizures. PHYSICAL EXAMINATION NEUROLOGICAL: Her neurologic exam is showing that she is now alert pleasant, oriented. There is a slight left facial flattening. There is left-sided tongue residual injury. She probably has some neglect on the left side and the left hand / fingers seem to be slightly weak. Left plantar response is possibly extensor. Reflexes overall 1+. IMAGING CT brain was negative. LABORATORY DATA The laboratory data shows sodium 143, potassium 3.1, glucose 163. BUN and creatinine normal. WBC today 9.6 and yesterday it was 16.7. Hemoglobin 11.4, platelets 427. ASSESSMENT Single seizure yesterday in the urgent care. There was apparent incontinence and I see evidence of tongue injury. There is confusion, agitation, combativeness. I am ordering an MRI of brain and EEG studies and we will consider anticonvulsant therapy after these. No prior history of seizure. She was being evaluated in the Urgent Care for earache and sinus complaints. Thank you for asking us to assist in her care. MD CODY Lawrence/GERALD /5:00 PM /7:04 PM
[2016-12-06] MEDS ORDERED: GADODIAMIDE PF 287 MG/ML 5 ML VIAL (for RAD MRI) IV ONE (20:08)
--- NOTE | 2016-12-06 20:25 | RADRPT ---
EXAM DATE/TIME: 12/06/2016 19:37 [facility] COMPARISON: CT BRAIN W/O CONTRAST, December 05, 2016, 14:07. INDICATIONS : Seizures. CONTRAST: 12 cc Omniscan (gadodiamide) IV MEDICAL HISTORY : None. SURGICAL HISTORY : Cholecystectomy. ENCOUNTER: Subsequent ACUITY: 2 day PAIN SCORE: 11/02 LOCATION: Head TECHNIQUE: Multiplanar, multisequence MRI of the brain was performed both prior to and following the administration of paramagnetic contrast. FINDINGS: There is abnormal signal seen in the left posterior superior parietal lobe and in the r ight frontal parietal region. This appears to have increased signal in the T2 weighted images within the sulci and some surrounding edema especially on the right side. The right side edema is seen as bright signal on the T2 weighted images and low signal on the T1 weighted images. Abnormal enhanceme nt is not seen. There is linear abnormality seen on the SWI sequences in these regions suggesting th ere is likely some hemorrhage within the sulci. The ventricles and cortical sulci are within normal limits. The basal cisterns are open. No focal e xtra-axial areas of hemorrhage are seen. There is mild increased signal within the sulci on the right side in the frontal parietal region. There is some low signal seen on the ADC mapping suggesting th ere is likely some degree of infarction in this region. CONCLUSION: Abnormal areas of signal seen in the right frontal parietal region and to a lesser de gree the left parietal region likely related to areas of extra-axial hemorrhage with edema and possib le infarction on the right side. Vitor Zepeda MD on December 06, 2016 at 20:12 Board Certified Radiologist. This report was verified electronically.
[2016-12-06] MEDS: ZOLPIDEM TARTRATE 5 MG TAB PO PRN (21:26)
[2016-12-06] MEDS: ONDANSETRON HCL 4 MG/2 ML VIAL IV PRN (21:27)
--- NOTE | 2016-12-06 21:49 | RADRPT ---
EXAM DATE/TIME: 12/06/2016 20:40 [facility] COMPARISON: No previous studies available for comparison. INDICATIONS : Transischemic attack. MEDICAL HISTORY : Thyroid disease. Cardiovascular problems. SURGICAL HISTORY : ERCP. D&C. ENCOUNTER: Initial ACUITY: 1 day PAIN SCORE: 0/10 LOCATION: Bilateral neck PEAK SYSTOLIC VELOCITIES (cm/sec): ICA/CCA RATIO: Right: 1.0 Left: 1.0 ICA: Right: 114 Left: 118 CCA: Right: 117 Left: 114 ECA: Right: 100 Left: 114 VERTEBRAL: Right: 80 antegrade Left: 101 antegrade Elevated flow velocities and ICA/CCA ratios have been found to correlate with increased degrees of vessel stenosis, calculated as percentage of diameter relative to a normal segment of distal ICA/CCA FINDINGS: RIGHT CAROTID: No significant stenosis is visualized. The waveforms are within normal limits. LEFT CAROTID: No significant stenosis is visualized. The waveforms are within normal limits. VERTEBRAL ARTERIES: Antegrade flow is seen in both vertebral arteries. MISCELLANEOUS: None. CONCLUSION: No significant stenosis seen. Vitor Zepeda MD on December 06, 2016 at 21:45 Board Certified Radiologist. This report was verified electronically.
[2016-12-07] VITALS (12 sets, daily range): BP systolic 100–117; BP diastolic 50–59; PULSE 75–87; RESP 14–22; TEMP 96.7–98.3; O2SAT 92–100
[2016-12-07] MEDS: CHLORHEXIDINE GLUCONATE 2 % 1 PACK (2 CLOTHS) TOP SCH (03:02)
[2016-12-07] MEDS: CHOLESTYRAMINE 4 GM PACKET PO SCH ×3 (06:20→21:55)
[2016-12-07] MEDS: PROPRANOLOL HCL 40 MG TAB PO SCH ×3 (06:20→22:04)
[2016-12-07] MEDS ORDERED: levETIRAcetam 1000 MG INJ 100 ML IV ONE (07:30)
[2016-12-07] MEDS: AMOXICILLIN (TRIHYDRATE) 250 MG CAP PO SCH ×3 (08:41→18:13)
[2016-12-07] MEDS: FAMOTIDINE 20 MG TAB PO SCH ×2 (08:41→21:55)
[2016-12-07] MEDS: HYDROCORTISONE SOD SUCCINATE 100 MG VIAL IV PUSH SCH ×2 (08:41→22:04)
[2016-12-07] MEDS: SODIUM CHLORIDE 0.9% FLUSH 5 ML FLUSH IV FLUSH SCH ×2 (08:41→21:57)
[2016-12-07] MEDS: METHIMAZOLE 5 MG TAB PO SCH (08:41)
[2016-12-07] MEDS: DOCUSATE SODIUM 100 MG CAP PO SCH ×2 (08:41→21:55)
--- NOTE | 2016-12-07 09:06 | HHI.PR ---
Review/Management Daily Summary 12/07 she is having no headache studies seen ? right and left hemisphere hemorrhagic infarcts, vs contusions likely had a seizurew, will start keppra eeg pending check echo tele sinus no antiplatelets or blood thinners for now Subjective Subjective Comments No acute events reported No headache No chest pain No dyspnea Active Medications Current Medications Medications (Trade) Dose Ordered Sig/Peterson Route Start Time Stop Time Status Last Admin (NS Flush) 2 ml UNSCH PRN IVF 12/05/16 12:15 (NS Flush) 2 ml UNSCH PRN IV FLUSH 12/05/16 14:15 (NS Flush) 2 ml BID IV FLUSH 12/05/16 21:00 12/07/16 08:41 (Tylenol) 650 mg Q6H PRN PO 12/05/16 14:15 (Morphine Inj) 2 mg Q2H PRN IV 12/05/16 14:15 12/06/16 21:27 (Pepcid) 20 mg Q12HR PO 12/05/16 21:00 12/07/16 08:41 (Ativan Inj) 1 mg Q1H PRN IV 12/05/16 14:15 (Zofran Inj) 4 mg Q6H PRN IV 12/05/16 14:15 12/06/16 21:27 (Reglan Inj) 10 mg Q6H PRN IV 12/05/16 14:15 (Colace) 100 mg BID PO 12/05/16 21:00 12/07/16 08:41 (Ambien) 5 mg HS PRN PO 12/05/16 14:15 12/06/16 21:26 Miscellaneous Information 1 Q361D XX 12/05/16 14:15 (Chlorhexidine 2% Cloth) 3 pack Taper DAILY@04 TOP 12/06/16 04:00 12/02/17 03:59 12/07/16 03:02 (Chlorhexidine 2% Cloth) 3 pack UNSCH PRN TOP 12/05/16 14:15 (Inderal) 40 mg Q8HR PO 12/05/16 22:00 12/07/16 06:20 (Tapazole) 5 mg DAILY PO 12/06/16 09:00 12/07/16 08:41 (Questran 4 Gm Pkt) 4 gm Q8HR PO 12/05/16 22:00 12/07/16 06:20 (SoluCORTEF INJ) 100 mg Q12HR IV PUSH 12/05/16 21:00 12/07/16 08:41 (Trimox) 250 mg TID PO 12/05/16 18:00 12/12/16 17:59 12/07/16 08:41 (Keppra) 500 mg BID PO 12/07/16 21:00 Allergies Allergies Coded Allergies Albuterol (Verified Allergy, Severe, 12/05/16) Exam I&O / VS 12/06/16 12/06/16 12/07/16 15:00 23:00 07:00 Intake Total 400 ml 500 ml 360 ml Balance 400 ml 500 ml 360 ml Intake Oral 400 ml 480 ml 360 ml IV Total 0 ml 20 ml 0 ml # Voids 0 2 2 # Bowel Movements 0 0 0 Vital Signs Date Time Temp Pulse Resp B/P Pulse Ox O2 Delivery O2 Flow Rate FiO2 12/07/16 08:09 95 Nasal Cannula 2.00 12/07/16 06:00 82 12/07/16 04:00 79 12/07/16 04:00 97.9 79 14 100/52 92 12/07/16 02:00 82 12/07/16 00:00 98.1 86 22 108/56 93 12/07/16 00:00 86 12/06/16 22:00 90 12/06/16 20:27 100 Nasal Cannula 2.00 12/06/16 20:00 85 12/06/16 20:00 98.6 92 20 136/84 100 12/06/16 19:00 100 Nasal Cannula 2.00 12/06/16 18:00 89 12/06/16 16:00 82 12/06/16 16:00 98.1 82 25 112/54 95 12/06/16 14:00 85 12/06/16 12:00 97.9 77 21 94/53 95 12/06/16 12:00 77 12/06/16 10:00 78 Objective Radiology Results Last 48 hours Impressions Carotid Artery Ultrasound 12/06/16 0000 Signed Impressions: Service Date/Time: Tuesday, December 06, 2016 20:40 - CONCLUSION: No significant stenosis seen. Vitor Zepeda MD Brain MRI 12/06/16 0000 Signed Impressions: Service Date/Time: Tuesday, December 06, 2016 19:37 - CONCLUSION: Abnormal areas of signal seen in the right frontal parietal region and to a lesser degree the left parietal region likely related to areas of extra-axial hemorrhage with edema and possible infarction on the right side. Vitor Zepeda MD Head CT 12/05/16 1206 Signed Impressions: Service Date/Time: Monday, December 05, 2016 14:07 - CONCLUSION: Normal examination for a patient of this age. Paul Rizo MD Chest X-Ray 12/05/16 1206 Signed Impressions: Service Date/Time: Monday, December 05, 2016 12:17 - CONCLUSION: No acute disease. Paul Rizo MD Micro and Labs Date/Time Procedure Status Source Growth 12/05/16 12:35 Aerobic Blood Culture - Preliminary Resulted Blood Peripheral NO GROWTH IN 1 DAY 12/05/16 12:35 Anaerobic Blood Culture - Preliminary Resulted Blood Peripheral NO GROWTH IN 1 DAY 12/05/16 12:10 Urine Culture - Preliminary Resulted Urine Catheterized Urine Gram Negative Eric Nikolai Eugene MD Dec 07, 2016 09:05
--- NOTE | 2016-12-07 15:20 | MG ---
cc: CARMENCITA WEBER M.D. Lab No: [id number] Date: 12/07/2016 Age: Sex: F DESCRIPTION The background rhythm is generally slow in the theta and delta frequencies. There did appear to be some triphasic waves present. I do not see any definite epileptiform features. Some sharp activity was seen over the right hemisphere but this is mainly triphasic in nature. There is occasional muscle artifact seen. Activation was not done. INTERPRETATION Abnormal study consistent with a moderate encephalopathy. Carmencita Weber MD NAIMA/BT /2:47 PM /3:17 PM
[2016-12-07] MEDS: MORPHINE SULFATE 4 MG/ML INJ IV PRN (16:46)
--- NOTE | 2016-12-07 17:23 | ECHLIM ---
Study Study Date:12/07/2016 STUDY CONCLUSIONS SUMMARY - Left ventricle: The cavity size was normal. Wall thickness was increased in a pattern of mild LVH. There was concentric hypertrophy. Systolic function was normal. The estimated ejection fraction was in the range of 55% to 60%. Wall motion was normal; there were no regional wall motion abnormalities. - Tricuspid valve: Mild regurgitation. - Pulmonary arteries: PA peak pressure: 38mm Hg (S). If LV function is below 40, please consider prescribing an ACEI or ARB or document rationale for non-use. PROCEDURE DATA STUDY STATUS: Elective. Procedure: Transthoracic echocardiography. Image quality was good. Scanning was performed from the parasternal, apical, and subcostal acoustic windows. Study completion: The patient tolerated the procedure well. Transthoracic echocardiography. M-mode, complete 2D, complete spectral Doppler, and color Doppler. Patient status: Inpatient. CARDIAC ANATOMY LEFT VENTRICLE: The cavity size was normal. Wall thickness was increased in a pattern of mild LVH. There was concentric hypertrophy. Systolic function was normal. The estimated ejection fraction was in the range of 55% to 60%. Wall motion was normal; there were no regional wall motion abnormalities. AORTIC VALVE: The valve appears to be grossly normal. Doppler: There was no stenosis. No significant regurgitation. MITRAL VALVE: The valve appears to be grossly normal. Doppler: There was no evidence for stenosis. Trace regurgitation. LEFT ATRIUM: The atrium was normal in size. RIGHT VENTRICLE: There was no evidence of concentric hypertrophy. Systolic function was normal. PULMONIC VALVE: The valve appears to be grossly normal. Doppler: There was no evidence for stenosis. No significant regurgitation. TRICUSPID VALVE: The valve appears to be grossly normal. Doppler: There was no evidence for stenosis. Mild regurgitation. PERICARDIUM: There was no pericardial effusion. BASIC MEASUREMENTS ADULT NORMAL Left ventricle LV internal dimension, ED, chordal level, *38.3 mm 43-52 PLAX LV internal dimension, ES, chordal level, 27.3 mm 23-38 PLAX Fractional shortening, chordal level, PLAX *29 % >29 LV posterior wall thickness, ED 11.8 mm IVS/LVPW ratio, ED 1.27 <1.3 Ventricular septum Septal thickness, ED 15 mm Right ventricle RV internal dimension, ED, PLAX 31.1 mm 19-38 DOPPLER MEASUREMENTS ADULT NORMAL Main pulmonary artery Pressure, S *38 mm Hg =30 Tricuspid valve Regurgitant peak velocity 263 cm/s Peak RV-RA gradient, S 28 mm Hg Systemic veins Estimated CVP 10 mm Hg Right ventricle RV pressure, S *38 mm Hg <30 LEGEND: Mean values are shown as u=mean value. Asterisk (*) weinberg values outside specified normal range. Prepared and signed by Nba Bee [id number]
--- NOTE | 2016-12-07 18:10 | HHI.PR ---
Subjective Remarks Follow-up for possible seizure activity, thyroid storm, T7 fracture. Patient is doing well. No acute concerns. Denies any fever, chills. Objective Vitals Vital Signs Date Time Temp Pulse Resp B/P Pulse Ox O2 Delivery O2 Flow Rate FiO2 12/07/16 17:04 96.7 75 16 102/59 97 12/07/16 16:56 18 12/07/16 16:00 98.1 84 15 100/50 95 12/07/16 16:00 84 12/07/16 14:00 87 12/07/16 12:00 98.0 78 14 117/56 93 12/07/16 12:00 78 12/07/16 10:00 85 12/07/16 08:09 95 Nasal Cannula 2.00 12/07/16 08:00 97.9 76 14 105/54 98 12/07/16 08:00 76 12/07/16 08:00 98 Nasal Cannula 2.00 12/07/16 06:00 82 12/07/16 04:00 79 12/07/16 04:00 97.9 79 14 100/52 92 12/07/16 02:00 82 12/07/16 00:00 98.1 86 22 108/56 93 12/07/16 00:00 86 12/06/16 22:00 90 12/06/16 20:27 100 Nasal Cannula 2.00 12/06/16 20:00 85 12/06/16 20:00 98.6 92 20 136/84 100 12/06/16 19:00 100 Nasal Cannula 2.00 I/O 12/06/16 12/06/16 12/06/16 12/07/16 12/07/16 12/07/16 07:00 15:00 23:00 07:00 15:00 23:00 Intake Total 120 ml 400 ml 500 ml 360 ml 500 ml Balance 120 ml 400 ml 500 ml 360 ml 500 ml Intake Oral 120 ml 400 ml 480 ml 360 ml 400 ml IV Total 0 ml 0 ml 20 ml 0 ml 100 ml # Voids 1 0 2 2 1 # Bowel Movements 0 0 0 0 0 1 Result Diagram: 12/06/16 0518 12/05/16 1210 Imaging Last Impressions Carotid Artery Ultrasound 12/06/16 0000 Signed Impressions: Service Date/Time: Tuesday, December 06, 2016 20:40 - CONCLUSION: No significant stenosis seen. Vitor Zepeda MD Brain MRI 12/06/16 0000 Signed Impressions: Service Date/Time: Tuesday, December 06, 2016 19:37 - CONCLUSION: Abnormal areas of signal seen in the right frontal parietal region and to a lesser degree the left parietal region likely related to areas of extra-axial hemorrhage with edema and possible infarction on the right side. Vitor Zepeda MD Head CT 12/05/16 1206 Signed Impressions: Service Date/Time: Monday, December 05, 2016 14:07 - CONCLUSION: Normal examination for a patient of this age. Paul Rizo MD Chest X-Ray 12/05/16 1206 Signed Impressions: Service Date/Time: Monday, December 05, 2016 12:17 - CONCLUSION: No acute disease. Paul Rizo MD Thoracic Spine CT 12/05/16 0000 Signed Impressions: Service Date/Time: Monday, December 05, 2016 14:17 - CONCLUSION: 1. Small superior endplate compression fracture of T7 without subluxation. 2. No canal stenosis. Bones are osteopenic. Colin Bonilla MD CT Angiography 12/05/16 0000 Signed Impressions: Service Date/Time: Monday, December 05, 2016 14:17 - CONCLUSION: 1. No evidence of PE. 2. There is atelectasis in the renal segment of the left lung and right lung base. 3. Hepatic cysts. Paul Rizo MD Objective Remarks GENERAL: Alert, oriented 3, NAD. SKIN: Warm and dry. HEAD: Normocephalic. EYES: No scleral icterus. No injection or drainage. NECK: Supple, trachea midline. No JVD or lymphadenopathy. CARDIOVASCULAR: Regular rate and rhythm without murmurs, gallops, or rubs. RESPIRATORY: Breath sounds equal bilaterally. No accessory muscle use. GASTROINTESTINAL: Abdomen soft, non-tender, nondistended. MUSCULOSKELETAL: No cyanosis, or edema. BACK: Nontender without obvious deformity. No CVA tenderness. Procedures None A/P Problem List: (1) Thyroid crisis or storm ICD Code: E05.91 Status: Acute (2) T7 vertebral fracture ICD Code: S22.069A Status: Acute (3) Otitis media ICD Code: H66.90 Status: Acute Assessment and Plan Ms. Uriarte is a pleasant 66-year-old female who was sent from an urgent care facility due to concern over possible seizure episode. She also fell from the table and urgent care. She was admitted with thyroid storm. Her TSH was 0.017, free T4 2 0.65, free T36.83 on admission. She was given beta emily, methimazole. 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 - Neurology following. Currently on Keppra. No anti-platelets or blood thinners. - Thyroid storm - currently controlled. - Continue propranolol 40 mg every 8 hours, methimazole 5 mg daily. - Continue hydrocortisone 100 mg IV every 12 hours. We can probably discontinue steroids soon. - T7 vertebral compression fracture - CT imaging shows superior endplate fracture of T7 without any spinal stenosis. - Neurosurgery consult for input with this T7 fracture. - Otitis media - amoxicillin - Insomnia - continue zolpidem when necessary. Full code. SCDs. Problem Qualifiers (1) Thyroid crisis or storm: Qualified Code: E05.91 - Thyrotoxicosis with thyrotoxic crisis, unspecified thyrotoxicosis type Jelani Lees DO Dec 07, 2016 18:10
--- NOTE | 2016-12-07 18:20 | MB ---
cc: FOZIA APPLE M.D. DATE OF CONSULTATION: 12/07/2016 REASON FOR CONSULTATION: T7 compression fracture. HISTORY OF PRESENT ILLNESS A 66-year-old female who apparently had a seizure yesterday while at an urgent care facility where she presented for complaints of right ear ache. She apparently bit her tongue and was unresponsive and combative. She also was incontinent of urine, has a tongue bite, and states she may have hit her head also. She was brought to [facility] and workup included CT scan of the head which did not reveal any acute abnormality. She did have complaints of mid thoracic back pain and CT scan of the thoracic spine reveals a small superior T7 end plate compression deformity without any kyphosis or stenosis. She has also undergone neurology evaluation for seizure and is being treated accordingly with anti-epileptics. MRI scan of the brain obtained reveals the possibility of a small traumatic subarachnoid hemorrhage with right frontoparietal convexity as well as left parietal convexity area and possibly even a small infarct in the right hemisphere. She had a transient episode of left-sided droopiness and weakness in the left upper extremity this morning which resolved shortly. PAST MEDICAL HISTORY: Tj's thyroiditis. MEDICATIONS: 1. Vitamin B12 1000 micrograms sublingual daily. 2. Multivitamins one daily. 3. Thyroid medication. ALLERGIES: ALBUTEROL SOCIAL HISTORY: She is a . Former smoker. Denies alcohol use. REVIEW OF SYSTEMS: Complains of mid thoracic back pain which is tolerable. There is some associated confusion. Denies any shortness of breath. Denies any abdominal pain. No nausea or vomiting. No double vision or blurred vision. No history of easy bleeding or bruising, no fever or chills. Pertinent positives as mentioned in the history of present illness. LABORATORY STUDIES: White blood cell count 9.6, hemoglobin 11.4, platelet count 427, PT 12.6, INR 1.1. Sodium 143, potassium 3.1, BUN 7, creatinine 0.67, glucose 163. Toxicology screen is negative. Urinalysis is indicative of urinary tract infection with urine cultures growing out E. Coli. PHYSICAL EXAMINATION: VITAL SIGNS: Temperature 98.1, pulse 84, respiratory rate 15, blood pressure 100/50. Oxygen saturation 95% on room air. Head: No Mcguire's or raccoon sign. Neck is supple with no guarding or rigidity. Chest: Clear to auscultation bilaterally. Heart: Regular rate and rhythm, normal S1-S2. Abdomen: Soft, nontender. Extremities: No cyanosis or edema. Neurologic: She has mild tenderness in the mid thoracic area. She is awake, alert. Pupils are equal and reactive. Extraocular muscles are intact. Face is symmetric. She moves all four extremities with good strength. Negative Babinski. Speech is fluent, light touch sensation is intact. IMPRESSION 1. Mild T7 superior endplate compression deformity with associated back pain which is improving. 2. Traumatic subarachnoid hemorrhage after a seizure involving the right frontal parietal and left parietal convexity with possibly underlying right hemisphere stroke. 3. Urinary tract infection. PLAN The patient at this point is stable from a neurosurgical standpoint. The mild T7 superior endplate compression deformity does not require any intervention and only symptomatic treatment. Her activities can be increased as tolerated. The small traumatic subarachnoid hemorrhage also does not require any intervention at this time and recommend symptomatic management and observation. Management of her seizures will be deferred to the neurology service. MD PAULINE Myrick/ANNIKA /5:12 PM /6:00 PM MATTHEW
[2016-12-07] MEDS: levETIRAcetam 500 MG TAB PO SCH (21:55)
[2016-12-08 00:29] VITALS: BP 109/60; PULSE 80; RESP 18; TEMP 97.2; O2SAT 95
[2016-12-08] MEDS: CHLORHEXIDINE GLUCONATE 2 % 1 PACK (2 CLOTHS) TOP SCH (04:00)
[2016-12-08 05:40] VITALS: BP 110/64; PULSE 81; RESP 20; TEMP 96.7; O2SAT 96
[2016-12-08] MEDS: PROPRANOLOL HCL 40 MG TAB PO SCH ×2 (06:05→14:00)
[2016-12-08] MEDS: CHOLESTYRAMINE 4 GM PACKET PO SCH ×2 (06:08→14:00)
[2016-12-08 08:00] VITALS: BP 123/65; PULSE 75; RESP 16; TEMP 96.1; O2SAT 95
[2016-12-08] MEDS: HYDROCORTISONE SOD SUCCINATE 100 MG VIAL IV PUSH SCH (09:07)
[2016-12-08] MEDS: METHIMAZOLE 5 MG TAB PO SCH (09:07)
[2016-12-08] MEDS: levETIRAcetam 500 MG TAB PO SCH (09:07)
[2016-12-08] MEDS: DOCUSATE SODIUM 100 MG CAP PO SCH (09:07)
[2016-12-08] MEDS: AMOXICILLIN (TRIHYDRATE) 250 MG CAP PO SCH ×3 (09:07→18:09)
[2016-12-08] MEDS: FAMOTIDINE 20 MG TAB PO SCH (09:07)
[2016-12-08] MEDS: SODIUM CHLORIDE 0.9% FLUSH 5 ML FLUSH IV FLUSH SCH (09:08)
[2016-12-08 12:00] VITALS: BP 111/59; PULSE 79; RESP 16; TEMP 95.5; O2SAT 96
[2016-12-08 16:00] VITALS: BP 132/74; PULSE 77; RESP 16; TEMP 96.8; O2SAT 98
[2016-12-08] MEDS ORDERED: AMOX250C3 PO (17:31)
[2016-12-08] MEDS ORDERED: METH5 PO (17:31)
[2016-12-08] MEDS ORDERED: LEVE500 PO (17:31)
--- NOTE | 2016-12-08 17:38 | HHI.DS ---
Discharge Summary Admission Date Dec 05, 2016 at 14:12 Discharge Date: Dec 08, 2016 Admitting Diagnosis thyroid storm, altered mental status (1) Thyroid crisis or storm ICD Code: E05.91 Diagnosis: Principal (2) T7 vertebral fracture ICD Code: S22.069A (3) Otitis media ICD Code: H66.90 Procedures None Brief History - From Admission 66-year-old male was brought to the emergency room by EMS from an urgent care center after having a possible seizure episode. Patient went to the urgent care for right earache a couple. While she was being exam and she started posturing that lasted for about 30 seconds and then flailing her extremities. In the process she fell from the exam table. By the time 911 arrived patient had a GCS of 11 as per them and patient was combative with the flailing extremities. Her heart rate was in the 180s and they gave her a dental collared followed by Cardizem and slowly the heart rate came down to 120s. During this time patient' s mental status improved to GCS of 14. She was less combative but slightly confused. She was urinary incontinent but no lip or tongue bite. She was complaining off mid back pain upon arrival and being moved from the stretcher. Patient continue to be a GCS of 14 and tachycardic upon arrival. She denied of any history of seizures. Patient does not have a primary care doctor and has not seen anybody in past 2 years. She is not on any medications on a regular basis she said. She denied any substance abuse. She is not an alcoholic. Besides the mid back pain she is not complaining of any other pain. CBC/BMP: 12/06/16 0518 12/05/16 1210 Significant Findings Laboratory Tests Test 12/06/16 05:18 Red Blood Count 3.86 MIL/MM3 (4.00-5.30) Hemoglobin 11.4 GM/DL (11.6-15.3) Hematocrit 33.4 % (35.0-46.0) Neutrophils (%) (Auto) 74.8 % (16.0-70.0) Monocytes (%) (Auto) 8.6 % (0.0-8.0) Imaging Last Impressions Carotid Artery Ultrasound 12/06/16 0000 Signed Impressions: Service Date/Time: Tuesday, December 06, 2016 20:40 - CONCLUSION: No significant stenosis seen. Vitor Zepeda MD Brain MRI 12/06/16 0000 Signed Impressions: Service Date/Time: Tuesday, December 06, 2016 19:37 - CONCLUSION: Abnormal areas of signal seen in the right frontal parietal region and to a lesser degree the left parietal region likely related to areas of extra-axial hemorrhage with edema and possible infarction on the right side. Vitor Zepeda MD Head CT 12/05/16 1206 Signed Impressions: Service Date/Time: Monday, December 05, 2016 14:07 - CONCLUSION: Normal examination for a patient of this age. Paul Rizo MD Chest X-Ray 12/05/16 1206 Signed Impressions: Service Date/Time: Monday, December 05, 2016 12:17 - CONCLUSION: No acute disease. Paul Rizo MD Thoracic Spine CT 12/05/16 0000 Signed Impressions: Service Date/Time: Monday, December 05, 2016 14:17 - CONCLUSION: 1. Small superior endplate compression fracture of T7 without subluxation. 2. No canal stenosis. Bones are osteopenic. Colin Bonilla MD CT Angiography 12/05/16 0000 Signed Impressions: Service Date/Time: Monday, December 05, 2016 14:17 - CONCLUSION: 1. No evidence of PE. 2. There is atelectasis in the renal segment of the left lung and right lung base. 3. Hepatic cysts. Paul Rizo MD PE at Discharge GENERAL: Alert, oriented 3, NAD. SKIN: Warm and dry. HEAD: Normocephalic. EYES: No scleral icterus. No injection or drainage. NECK: Supple, trachea midline. No JVD or lymphadenopathy. CARDIOVASCULAR: Regular rate and rhythm without murmurs, gallops, or rubs. RESPIRATORY: Breath sounds equal bilaterally. No accessory muscle use. GASTROINTESTINAL: Abdomen soft, non-tender, nondistended. MUSCULOSKELETAL: No cyanosis, or edema. BACK: Nontender without obvious deformity. No CVA tenderness. Pt update on day of discharge Ms. Uriarte is doing well. No acute concerns. She is ambulating well. Discussed with Dr. Eugene (Neurology) who recommended no driving until cleared by him. Also , no aspirin for 2 weeks or until seen by him. Patient will be continued on Keppra. Hospital Course Ms. Uriarte was admitted to the hospital for a suspected seizure episode witnessed at an urgent care center. ED work indicated a T7 compression fracture as well. Patient was evaluated by neurology who started patient on Keppra for Seizure. There was evidence of possible left and right hemisphere hemorrhagic infarcts. Discussed with neurology on 12/08/2016. Dr. Eugene (Neurology) agreed with discharge. He recommended patient not to take any aspirin or other anti- platelet, blood thinner for 2 weeks. He also recommended to continue Keppra. Neurosurgery recommended conservative management with regards to T7 fracture. Initially patient was admitted to ICU with suspected thyroid storm and was started on Methimazole. We discontinued Levothyroxine and continued Methimazole. We gave patient referral to see an Digital Production [employer] as well as PCP within one week. Neurology follow up in two weeks. Patient was advised not to drive until cleared by neurology. Patient verbalized understanding. Patient was subsequently discharged home. Pt Condition on Discharge: Good Discharge Disposition: Discharge Home Discharge Time: > 30 minutes Discharge Instructions DIET: Follow Instructions for: Heart Healthy Diet Activities you can perform: Regular-No Restrictions, See Additionl Instruction Other Activity Instructions: No driving until cleared by Neurology. Follow up Referrals: Endocrinology - 1 Week Neurology - 2 Weeks with Nikolai Eugene MD PCP Follow-up - 1 Week New Medications: Amoxicillin (Amoxicillin) 250 Mg Cap 250 MG PO TID sinus #21 CAP Levetiracetam (Keppra) 500 Mg Tab 500 MG PO BID Seizure Control #60 TAB Methimazole (Tapazole) 5 Mg Tab 5 MG PO DAILY Thyroid #30 TAB Continued Medications: Cyanocobalamin (Vitamin B-12) 1,000 Mcg Subl 1000 MCG SL DAILY Nutritional Supplement Ref 0 TAB.SL Multiple Vitamins W/ Minerals (Multivitamin Women) 1 Tab Tab 1 TAB PO DAILY Nutritional Supplement Ref 0 TAB Discontinued Medications: ([Thyroid Med]) 1 TAB PO QD Jelani Lees DO Dec 08, 2016 17:38
[2016-12-08] MEDS ORDERED: CHOLESTYRAMINE 4 GM PACKET PO SCH (20:00)
== END 2016-12-08 20:03 | disposition home or self-care (01) | DRG 643 ==
LOC: NEPC 11:54 → NEDA 14:12 → N03B 20:42 → N05A 12-07 16:32
PROVIDERS: ADMIT Hospitalist; ATTEND Hospitalist
DX: E05.91 Thyrotoxicosis, unspecified with thyrotoxic crisis or storm (principal); S06.6X0A Traumatic subarachnoid hemorrhage without loss of consciousness, initial encounter; S22.069A Unspecified fracture of T7-T8 vertebra, initial encounter for closed fracture; R56.9 Unspecified convulsions; N39.0 Urinary tract infection, site not specified; H66.90 Otitis media, unspecified, unspecified ear; R32 Unspecified urinary incontinence; Z87.891 Personal history of nicotine dependence; J45.909 Unspecified asthma, uncomplicated; S00.572A Other superficial bite of oral cavity, initial encounter; G47.00 Insomnia, unspecified; X58.XXXA Exposure to other specified factors, initial encounter; Y93.9 Activity, unspecified; Y92.9 Unspecified place or not applicable; Y92.532 Urgent care center as the place of occurrence of the external cause
CPT/HCPCS: 70450; 70553; 71010; 71275; 72128; 76937; 80053; 80307; 80320; 81001; 82248; 82550; 83605; 84439; 84443; 84481; 84484; 85025; 85610; 87040; 87077; 87086; 87186; 87641; 93005; 93308; 93880; 95819; 96374; 96375; A9579; J0696; J1720; J1953; J2270; J2405; J7030; Q9967